=== PATIENT | male | born 1980 | race Hispanic/Latino ===

== ENCOUNTER 2021-03-02 19:09 | Emergency (ER) | payer OTHER ==
[~2021-03-02] VITALS: Ht 160 cm; Wt 72.6 kg
[2021-03-02] MEDS ORDERED: ACET1TAB25 PO (19:55)
[2021-03-02 20:12] VITALS: BP 131/70
[2021-03-02] MEDS ORDERED: HYDROCODONE/ACETAMINOPHEN 10/325 MG TAB PO ONE (20:50)
== END 2021-03-02 20:15 | disposition home or self-care (01) ==
LOC: EDH 19:09
DX: M79.632 Pain in left forearm (principal)